=== PATIENT | male | born 1940 | race Caucasian/White ===

== ENCOUNTER 2016-06-30 06:56 | Day surgery (SDC) | payer MEDICARE ==
[2016-06-30] MEDS ORDERED: LACTATED RINGERS 1,000 ML ONE (07:07)
[2016-06-30] MEDS ORDERED: IV START KIT ONE (07:07)
[2016-06-30] MEDS ORDERED: LACTATED RINGERS 1,000 ML IV SCH (07:45)
[2016-06-30] MEDS ORDERED: PROPOFOL 40 ML IV ONE (08:13)
[2016-06-30] MEDS ORDERED: KETAMINE HCL UD SYRINGE 100 MG/2 ML IV ONE (08:16)
--- NOTE | 2016-07-02 10:37 | SURGPATH ---
[facility] [address] [place] [id number] Patient Name: KRISS LANCASTER MR#: [id number] : 1940 Gender: M Specimen #: [id number] Collected: 06/30/2016 Received: 07/01/2016 Reported: 07/02/2016 Submitting Phys: JODEE FOSTER Copy To Phys: [facility] Clinical History / Pre-Operative Diagnosis: SCREENING COLONOSCOPY Specimen Source / Surgical Procedure Performed: #1-SPLENIC FLEXURE POLYP; #2-PROXIMAL TRANSVERSE COLON POLYP; #3-POLYP AT 90 CM; #4-: BIOPSY AT 90 CM; #5-SPLENIC FLEXURE COLON POLYP #2 Interpretation: 1. COLON, SPLENIC FLEXURE, BIOPSY: - TUBULAR ADENOMA. - NO EVIDENCE OF MALIGNANCY. 2. COLON, PROXIMAL TRANSVERSE, BIOPSY: - TUBULAR ADENOMA. - NO EVIDENCE OF MALIGNANCY. 3. COLON, 90 CM, BIOPSY: - COLONIC MUCOSA SHOWING NO DIAGNOSTIC ABNORMALITIES. - NO EVIDENCE OF SIGNIFICANT INFLAMMATION OR MALIGNANCY. 4. COLON, 90 CM, BIOPSY: - COLONIC MUCOSA SHOWING NO DIAGNOSTIC ABNORMALITIES. - NO EVIDENCE OF SIGNIFICANT INFLAMMATION OR MALIGNANCY. 5. COLON, SPLENIC FLEXURE, BIOPSY: - TUBULAR ADENOMA. - NO EVIDENCE OF MALIGNANCY. Electronically Signed Out Fermin Penaloza M.D., Ph.D. Gross Description: #1 The specimen is received in a formalin filled container labeled with the patient's name and "splenic flexure polyp". A polypoid george biopsy is 0.5 x 0.4 x 0.3 cm. Bisected. Totally embedded in cassette #1. #2 The specimen is received in a formalin filled container labeled with the patient's name and "proximal transverse colon polyp". A polypoid red-george biopsy is 0.6 x 0.5 x 0.4 cm. Bisected. Totally embedded in cassette #2. #3 The specimen is received in a formalin filled container labeled with the patient's name and "colon polyp at 90 cm". A single george biopsy is 0.4 cm. Totally embedded in cassette #3. #4 The specimen is received in a formalin filled container labeled with the patient's name and "colon biopsy at 90 cm". A single george biopsy is 0.5 x 0.3 x 0.2 cm. Totally embedded in cassette #4. #5 The specimen is received in a formalin filled container labeled with the patient's name and "splenic flexure colon polyp". A polypoid george biopsy is 0.4 x 0.3 x 0.2 cm. Totally embedded in cassette #5. Alma Rosa Louis. Microscopic Description: 1. Examination of multiple levels from the colon biopsy at the splenic flexure shows a bisected piece of colonic mucosa with adenomatous changes within glands and tubules. There is no evidence of malignancy. 2. Examination of multiple levels from the proximal transverse colon biopsy shows a bisected piece of colonic mucosa with adenomatous changes within glands and tubules. There is no evidence of malignancy. 3. Examination of multiple levels from the colon biopsy at 90 cm shows a single fragment of histologically unremarkable colonic mucosa. The architecture is intact without evidence of distortion. There is no evidence of significant inflammation or malignancy. 4. Examination of multiple levels from the colon biopsy at 90 cm shows a single fragment of histologically unremarkable colonic mucosa. The architecture is intact without evidence of distortion. There is no evidence of significant inflammation or malignancy. 5. Examination of multiple levels from the colon biopsy at the splenic flexure shows a single fragment of colonic mucosa with adenomatous changes within glands and tubules. There is no evidence of malignancy. 1: 62320 2: 22905 3: 11472 4: 85191 5: 16425 D12.3
== END 2016-06-30 10:00 | disposition home or self-care (01) ==
LOC: SDC 06:56
PROVIDERS: ATTEND Family Medicine
PROC: 0DBL8ZX Excision of Transverse Colon, Via Natural or Artificial Opening Endoscopic, Diagnostic (ICD-10-PCS; principal; 2016-06-30)
DX: Z12.11 Encounter for screening for malignant neoplasm of colon (principal); D12.3 Benign neoplasm of transverse colon; K57.30 Diverticulosis of large intestine without perforation or abscess without bleeding; I44.0 Atrioventricular block, first degree; I25.10 Atherosclerotic heart disease of native coronary artery without angina pectoris; E78.5 Hyperlipidemia, unspecified; I10 Essential (primary) hypertension; M19.90 Unspecified osteoarthritis, unspecified site; G47.30 Sleep apnea, unspecified; Z85.46 Personal history of malignant neoplasm of prostate; Z85.53 Personal history of malignant neoplasm of renal pelvis; Z79.82 Long term (current) use of aspirin
CPT/HCPCS: 45385; J7120

== ENCOUNTER 2016-08-04 05:37 | Emergency (ER) | payer MEDICARE ==
[2016-08-04] MEDS ORDERED: ASPIRIN CHEWTAB 81 MG TABLET ONE (05:54)
[2016-08-04 06:08] LABS: BASO % 0.2 % (0.2-1.0); EOS # 0.1 (0.0-0.5); EOS % 1.1 % (0.9-2.9); HEMATOCRIT 42.4 % (32.0-52.0); HEMOGLOBIN 13.6 gm/l (14.0-18.0); IMM NEUT% 0.2 % (0-1); LYMPH # 0.8 (1.0-4.8); LYMPH % 14.7 % (15-45); MEAN CELL VOLUME 95.7 fl (80.0-94.0); MEAN CORPUSCULAR HEMOGLOBIN 30.7 pg (27.0-31.0); MEAN CORPUSCULAR HGB CONC 32.1 g/dl (33.0-37.0); MONO # 0.5 (0.0-0.8); MONO % 9.9 % (4-12); NEUT % 73.9 % (43-75); PLATELET COUNT 160 K/mm3 (130-400); RED CELL DISTRIBUTION WIDTH 14.6 % (11.5-14.5)
[2016-08-04 06:16] LABS: ALB/GLOB RATIO 1.5 (>1.0); ALBUMIN 4.3 gm/dL (3.5-5.7); CALCIUM 9.5 mg/dL (8.6-10.3); MAGNESIUM 1.9 mg/dL (1.9-2.7)
[2016-08-04 06:22] LABS: TROPONIN I 0.05 ng/ml (0.0-0.06)
[2016-08-04 06:26] LABS: CKMB ISOENZYME 4.4 ng/ml (0.6-6.3)
[2016-08-04] MEDS ORDERED: PREDNISONE 20 MG TABLET ONE (07:59)
--- NOTE | 2016-08-04 08:00 | RAD ---
CHEST - 2 VIEWS COMPARISON: Chest 2 views, 04/08/2015 HISTORY: Left arm pain for one week, worsening last night. FINDINGS: Views: Frontal and lateral chest Lungs: In the left lung base, there are horizontal linear opacities. Heart and vessels: No change in cardiomegaly and elongation of the thoracic aorta. Trachea and bronchi: Normal Mediastinum and keiko: Normal Costophrenic sulci: Normal Chest wall and bones: No acute finding. Degenerative osteophytes in the spine. Sternotomy wires. Partially imaged right shoulder arthroplasty. Upper abdomen: Normal. IMPRESSION: 1. In the left lung base, subsegmental atelectasis. 2. No change in cardiomegaly and atherosclerosis of the aorta. 3. Incidentally noted spondylosis of the thoracic spine, sternotomy wires, right shoulder arthroplasty.
--- NOTE | 2016-08-04 08:02 | RAD ---
ELBOW -LEFT 3-4 VIEWS COMPARISON: None. HISTORY: Left elbow pain. The patient takes allopurinol for gout. FINDINGS: Views: Left elbow AP, external rotation, internal rotation, and lateral. Bones: No acute finding. No fracture. Osteophytes at the joint margins and the entheses. Joint: Narrowing between the humerus and the ulna. Anterior intra-articular loose bodies. Soft tissues: Calcifications near the triceps tendon attachment to the ulna. Vascular clip in the forearm. IMPRESSION: 1. No acute finding. 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 2. Degenerative enthesopathy, triceps tendon attachment to the ulna.
== END 2016-08-04 08:22 | disposition home or self-care (01) ==
LOC: ED 05:37
DX: M25.522 Pain in left elbow (principal); I25.10 Atherosclerotic heart disease of native coronary artery without angina pectoris; I10 Essential (primary) hypertension; I25.2 Old myocardial infarction; Z95.1 Presence of aortocoronary bypass graft; Z85.118 Personal history of other malignant neoplasm of bronchus and lung; Z90.5 Acquired absence of kidney
CPT/HCPCS: 83880; 85025; 82550; 82553; 80053; 83735; 84484; 71020; 73080; 99284 ×2; 93005; A9270; J7512